=== PATIENT | female | born 1990 | race Hispanic/Latino ===

== ENCOUNTER 2020-07-06 21:49 | Emergency (ER) | payer MEDICAID, SELFPAY ==
[2020-07-07 15:46] LABS: SARS-CoV-2 MS2 Positive; SARS-CoV-2 N Gene Negative; SARS-CoV-2 S Gene Negative; SARS-CoV-2 by NAA Not Detected (NotDetected); SARS-CoV-2 orf1ab Negative
== END 2020-07-06 22:16 | disposition home or self-care (01) ==
LOC: BURERS 21:49
DX: B34.9 Viral infection, unspecified (principal); Z20.828 Contact with and (suspected) exposure to other viral communicable diseases; E11.9 Type 2 diabetes mellitus without complications; Z79.4 Long term (current) use of insulin
CPT/HCPCS: 87635; 87804; 99283; U0003

== ENCOUNTER 2022-08-22 20:29 | Observation (INO) | payer SELFPAY ==
[2022-08-22] MEDS ORDERED: Ketorolac Tromethamine 30 MG/ML VIAL ONE (20:49)
[2022-08-22] MEDS ORDERED: Ondansetron PF 4 MG/2 ML Vial ONE (20:49)
[2022-08-22] MEDS ORDERED: Acetaminophen 325 MG TAB ONE (21:35)
[2022-08-22 21:43] LABS: Bilirubin Negative (Negative); Blood, Urine Negative (Negative); Clarity Clear (Clear); Glucose, Urine (Dipstick) 500 mg/dL (Negative); Ketone, Urine > or equal to 80 mg/dL (Negative); Leukocyte Trace (Negative); Nitrite Positive (Negative); Protein, Urine (Dipstick) Trace mg/dL (Neg-Trace); Urobilinogen 0.2 mg/dL (Less than 2)
[2022-08-22 21:44] LABS: #Lymphocytes 0.5 thou/uL (1.20-3.40); #Monocytes 0.2 thou/uL (0.11-0.59); #Neutrophils 8.9 thou/uL (1.40-6.50); %Basophils 0.5 % (0.0-1.0); %Eosinophils 0.1 % (0.0-10.0); %Monocytes 2.1 % (0.0-10.0); %Neutrophils 92.3 % (42.0-75.0); Mean Corpuscular HGB CONC 32.9 g/dL (32.0-36.0); Mean Corpuscular Hemoglobin 28.7 pg (27.0-31.0); Mean Corpuscular Volume 87.2 fl (78.0-98.0); Mean Platelet Volume 7.9 fL (7.4-10.4); Platelet Count 270 10x3/uL (130-400); RBC Distribution Width 10.6 % (11.5-14.5); Red Blood Cell (RBC) Count 4.88 mill/uL (4.20-5.40); White Blood Cell (WBC) Count 9.6 10x3/uL (4.8-10.8)
[2022-08-22 21:48] LABS: ALT (SGPT) 11 U/L (8-55); AST (SGOT) 11 U/L (5-34); Albumin 4.1 g/dL (3.5-5.0); Alkaline Phosphatase 108 U/L (40-110); Anion Gap 19 mmol/L (10-20); BUN (Urea Nitrogen) 8 mg/dL (7.0-18.7); Bilirubin, Total 0.7 mg/dL (0.2-1.2); Calc. Creatinine Clearance 0 mL/min (70-130); Calcium 9.5 mg/dL (7.8-10.44); Carbon Dioxide 24 mmol/L (22-29); Chloride 94 mmol/L (98-107); Estimated GFR 121; Globulin 3.6 g/dL (2.4-3.5); Glucose 333 mg/dL (70-105); Protein, Total 7.7 g/dL (6.0-8.3); Sodium 133 mmol/L (136-145)
[2022-08-22 21:56] LABS: Pregnancy Test - Urine (BHCG) Negative (Negative); Pregu Control Background? CLEAR/WHITE (CLR/WHITE); Pregu Control Bar Appear? YES (CONTROL BAR)
[2022-08-22 22:01] LABS: Bacteria/HPF 3+ HPF (None Seen); Squamous Epithelial 0-3 HPF (0-3)
[2022-08-22] MEDS ORDERED: Ciprofloxacin Lactate/D5W 400 mg/200 ml Premix ONE (22:16)
[2022-08-22 23:03] LABS: SARS-CoV-2 NAA Rapid Test Not Detected (NotDetected)
[2022-08-22] MEDS: Sodium Chloride 0.9% 1,000 ML IV SCH (23:15)
[2022-08-22] MEDS ORDERED: Ondansetron PF 4 MG/2 ML Vial IVP PRN (23:45)
[2022-08-22] MEDS ORDERED: Ondansetron ODT 4 MG TAB SL PRN (23:45)
[2022-08-22] MEDS ORDERED: Acetaminophen 325 MG TAB PO PRN (23:45)
[2022-08-23 00:16] VITALS: BMI 27.3
[2022-08-23] MEDS: HYDROcodone/Acetaminophen 5/325 mg Tablet PO PRN ×5 (00:25→19:33)
[2022-08-23] MEDS ORDERED: Dextrose 50% Abboject 50 ML SYRINGE IVP PRN (00:30)
[2022-08-23] MEDS ORDERED: Dextrose 5% in Water 1,000 ML IV PRN (00:30)
[2022-08-23] MEDS: HumaLOG 300 UNITS/3 ML VIAL SC PRN ×2 (00:31→08:24)
[2022-08-23] MEDS: Sodium Chloride 0.9% 1,000 ML IV SCH ×2 (04:29→14:34)
[2022-08-23 08:54] LABS: Amphetamine Not Detected (NotDetected); Barbiturates Screen Not Detected (NotDetected); Benzodiazepine Screen Not Detected (NotDetected); Cocaine Metabolite Screen Detected (NotDetected); Medtox Control Line Valid? VALID (VALID); Methadone Not Detected (NotDetected); Methamphetamine Not Detected (NotDetected); Opiate Screen Not Detected (NotDetected); Oxycodone Screen Not Detected (NotDetected); Phencyclidine (PCP) Not Detected (NotDetected); THC/Cannabinoid Screen Not Detected (NotDetected); Tricyclic Screen Not Detected (NotDetected)
[2022-08-23] MEDS: HumaLOG 300 UNITS/3 ML VIAL SC SCH ×2 (12:36→17:32)
[2022-08-23 13:27] LABS: Hemoglobin A1c 10.7 % (4.0-6.0)
[2022-08-23 17:16] LABS: Bilirubin Negative (Negative); Blood, Urine Negative (Negative); Clarity Clear (Clear); Glucose, Urine (Dipstick) 500 mg/dL (Negative); Ketone, Urine > or equal to 80 mg/dL (Negative); Leukocyte Negative (Negative); Nitrite Negative (Negative); Protein, Urine (Dipstick) 30 mg/dL (Neg-Trace); Urobilinogen 0.2 mg/dL (Less than 2)
[2022-08-23] MEDS: Ondansetron ODT 4 MG TAB SL PRN (19:34)
[2022-08-23] MEDS: Lantus 1000 UNITS/10 ML VIAL SC SCH (21:00)
[2022-08-23] MEDS ORDERED: Meropenem 1 GM in Sodium Chloride 0.9% 100 ML IVPB SCH (23:00)
[2022-08-24] MEDS: Sodium Chloride 0.9% 1,000 ML IV SCH ×4 (00:30→18:37)
[2022-08-24] MEDS: HYDROcodone/Acetaminophen 5/325 mg Tablet PO PRN ×5 (02:29→22:59)
[2022-08-24] MEDS ORDERED: Meropenem 1 GM in Sodium Chloride 0.9% 100 ML IVPB SCH (06:00)
[2022-08-24] MEDS: HumaLOG 300 UNITS/3 ML VIAL SC SCH ×3 (08:21→17:24)
[2022-08-24] MEDS: cefTRIAXone\\ROCEPHIN 1 GM in Sodium Chloride 0.9% 100 ML IVPB SCH (14:07)
[2022-08-24] MEDS: Lantus 1000 UNITS/10 ML VIAL SC SCH (21:00)
[2022-08-24 22:08] LABS: Amphetamine Not Detected (NotDetected); Barbiturates Screen Not Detected (NotDetected); Benzodiazepine Screen Not Detected (NotDetected); Cocaine Metabolite Screen Detected (NotDetected); Medtox Control Line Valid? VALID (VALID); Methadone Not Detected (NotDetected); Methamphetamine Not Detected (NotDetected); Opiate Screen Detected (NotDetected); Oxycodone Screen Not Detected (NotDetected); Phencyclidine (PCP) Not Detected (NotDetected); THC/Cannabinoid Screen Not Detected (NotDetected); Tricyclic Screen Not Detected (NotDetected)
[2022-08-24] MEDS: Ondansetron ODT 4 MG TAB SL PRN (23:02)
[2022-08-25] MEDS: Sodium Chloride 0.9% 1,000 ML IV SCH ×2 (03:52→14:43)
[2022-08-25] MEDS: HYDROcodone/Acetaminophen 5/325 mg Tablet PO PRN ×4 (03:54→20:50)
[2022-08-25] MEDS: Ondansetron ODT 4 MG TAB SL PRN (04:03)
[2022-08-25 05:52] LABS: ALT (SGPT) 14 U/L (8-55); AST (SGOT) 14 U/L (5-34); Albumin 3.1 g/dL (3.5-5.0); Alkaline Phosphatase 79 U/L (40-110); Anion Gap 17 mmol/L (10-20); BUN (Urea Nitrogen) 4 mg/dL (7.0-18.7); Bilirubin, Total Less than 0.2 mg/dL (0.2-1.2); Calc. Creatinine Clearance 170 mL/min (70-130); Calcium 8.3 mg/dL (7.8-10.44); Carbon Dioxide 19 mmol/L (22-29); Chloride 104 mmol/L (98-107); Estimated GFR 128; Glucose 250 mg/dL (70-105); Potassium 3.6 mmol/L (3.5-5.1); Protein, Total 6.1 g/dL (6.0-8.3); Sodium 136 mmol/L (136-145)
[2022-08-25 05:54] LABS: Band 10 % (5-11); Lymphocytes 13 % (21-51); MDiff Complete? YES; Mean Corpuscular HGB CONC 34.6 g/dL (32.0-36.0); Mean Corpuscular Hemoglobin 29.6 pg (27.0-31.0); Mean Corpuscular Volume 85.5 fl (78.0-98.0); Mean Platelet Volume 8.8 fL (7.4-10.4); Monocytes 10 % (0-10); Neutrophil 67 % (42-75); Platelet Count 211 10x3/uL (130-400); Platelet Morphology Comment Appears Adequate; RBC Distribution Width 10.7 % (11.5-14.5); RBC Morphology Normal; Red Blood Cell (RBC) Count 3.72 mill/uL (4.20-5.40); White Blood Cell (WBC) Count 7.2 10x3/uL (4.8-10.8)
[2022-08-25] MEDS: HumaLOG 300 UNITS/3 ML VIAL SC SCH ×2 (09:02→13:43)
[2022-08-25] MEDS: cefTRIAXone\\ROCEPHIN 1 GM in Sodium Chloride 0.9% 100 ML IVPB SCH (14:43)
[2022-08-25] MEDS ORDERED: Bisacodyl 5 MG TAB PO PRN (15:26)
[2022-08-25] MEDS ORDERED: Senokot 8.6 MG TAB PO PRN (15:26)
[2022-08-25] MEDS: HumaLOG 300 UNITS/3 ML VIAL SC PRN ×2 (17:43→20:53)
[2022-08-25] MEDS: Lantus 1000 UNITS/10 ML VIAL SC SCH (20:51)
[2022-08-26] MEDS: Sodium Chloride 0.9% 1,000 ML IV SCH (01:30)
[2022-08-26] MEDS: HYDROcodone/Acetaminophen 5/325 mg Tablet PO PRN ×4 (02:55→21:14)
[2022-08-26] MEDS: Cephalexin 250 MG CAP PO SCH ×2 (09:25→15:10)
[2022-08-26] MEDS: HumaLOG 300 UNITS/3 ML VIAL SC PRN ×4 (09:26→21:16)
[2022-08-26] MEDS: Lantus 1000 UNITS/10 ML VIAL SC SCH (21:16)
[2022-08-27] MEDS: Cephalexin 250 MG CAP PO SCH ×2 (00:20→08:54)
[2022-08-27] MEDS: HYDROcodone/Acetaminophen 5/325 mg Tablet PO PRN (04:49)
[2022-08-27 05:38] VITALS: BP 117/78
[2022-08-27] MEDS ORDERED: HYDROcodone/Acetaminophen 5/325 mg Tablet PO PRN (07:24)
[2022-08-27] MEDS ORDERED: HumaLOG 300 UNITS/3 ML VIAL SC SCH (08:00)
[2022-08-27 11:07] VITALS: TEMP 97
[2022-08-27] MEDS ORDERED: Lantus 1000 UNITS/10 ML VIAL SC SCH (21:00)
== END 2022-08-27 09:15 | disposition home or self-care (01) ==
LOC: BURERS 20:29 → BURMED 22:20
PROVIDERS: ADMIT Family Medicine; ATTEND Family Medicine
DX: N12 Tubulo-interstitial nephritis, not specified as acute or chronic (principal); N39.0 Urinary tract infection, site not specified; B96.20 Unspecified Escherichia coli [E. coli] as the cause of diseases classified elsewhere; E11.9 Type 2 diabetes mellitus without complications; K38.1 Appendicular concretions; R07.81 Pleurodynia; Z16.23 Resistance to quinolones and fluoroquinolones; Z79.4 Long term (current) use of insulin; Z88.1 Allergy status to other antibiotic agents; Z20.822 Contact with and (suspected) exposure to COVID-19
CPT/HCPCS: 36415; 36416; 71045; 74176; 80053; 80306; 81003; 81015; 81025; 83036; 83605; 83735; 85025; 87040; 87077; 87086; 87149; 87186; 96361; 96365; 96366; 96367; 96375; 96376; G0378; J0696; J0744; J1815; J1885; J2185; J2405; J3490; J7050; Q0162; U0002

== ENCOUNTER 2024-01-17 15:28 | Emergency (ER) | payer OTHER ==
[2024-01-17] MEDS ORDERED: Ketorolac Tromethamine 60 MG/2 ML VIAL ONE (15:44)
== END 2024-01-17 16:15 | disposition home or self-care (01) ==
LOC: BURERS 15:28
DX: H60.92 Unspecified otitis externa, left ear (principal); E11.9 Type 2 diabetes mellitus without complications; Z79.4 Long term (current) use of insulin; Z79.84 Long term (current) use of oral hypoglycemic drugs
CPT/HCPCS: 96372; 99282; J1885

== ENCOUNTER 2024-02-21 15:59 | Emergency (ER) | payer OTHER ==
[~2024-02-21 15:59] MED LIST: Iopamidol 370 76% 100 ML VIAL ONE
[2024-02-21] MEDS ORDERED: Ondansetron PF 4 MG/2 ML Vial ONE ×2 (16:30→18:23)
[2024-02-21 16:50] LABS: #Basophils 0.1 thou/uL (0.0-0.2); #Lymphocytes 1.9 thou/uL (1.20-3.40); #Monocytes 0.5 thou/uL (0.11-0.59); #Neutrophils 4.2 thou/uL (1.40-6.50); %Basophils 1.5 % (0.0-1.0); %Eosinophils 0.5 % (0.0-10.0); %Lymphocytes 28.4 % (21.0-51.0); %Monocytes 7.3 % (0.0-10.0); %Neutrophils 62.3 % (42.0-75.0); Hematocrit 39.2 % (36.0-47.0); Hemoglobin 12.6 g/dL (12.0-16.0); Mean Corpuscular HGB CONC 32.1 g/dL (32.0-36.0); Mean Corpuscular Hemoglobin 24.7 pg (27.0-31.0); Mean Platelet Volume 7.7 fL (7.4-10.4); Platelet Count 335 10x3/uL (130-400); RBC Distribution Width 11.7 % (11.5-14.5); White Blood Cell (WBC) Count 6.8 10x3/uL (4.8-10.8)
[2024-02-21 16:54] LABS: ALT (SGPT) 13 U/L (8-55); AST (SGOT) 10 U/L (5-34); Albumin 4.3 g/dL (3.5-5.0); Alkaline Phosphatase 65 U/L (40-110); Anion Gap 20 mmol/L (10-20); BUN (Urea Nitrogen) 24 mg/dL (7.0-18.7); Bilirubin, Total 0.6 mg/dL (0.2-1.2); Calc. Creatinine Clearance 0 mL/min (70-130); Calcium 9.7 mg/dL (7.8-10.44); Carbon Dioxide 21 mmol/L (22-29); Chloride 97 mmol/L (98-107); Estimated GFR 113; Globulin 3.2 g/dL (2.4-3.5); Glucose 264 mg/dL (70-105); Lipase 12 U/L (8-78); Potassium 3.6 mmol/L (3.5-5.1); Protein, Total 7.5 g/dL (6.0-8.3); Sodium 134 mmol/L (136-145)
[2024-02-21 17:16] LABS: Platelet Adequacy Comment Appears Adequate
[2024-02-21 17:17] LABS: MDiff Complete? YES
[2024-02-21] MEDS ORDERED: Lidocaine Viscous Sol 2% 15 ml UD Cup ONE ×2 (17:18→18:29)
[2024-02-21] MEDS ORDERED: Mag-Al Plus 1200/1200/120 MG (30 mL) UDCUP ONE ×2 (17:18→18:29)
[2024-02-21 19:53] LABS: Bilirubin Negative (Negative); Blood, Urine Negative (Negative); Clarity Clear (Clear); Glucose, Urine (Dipstick) 500 mg/dL (Negative); Ketone, Urine > or equal to 80 mg/dL (Negative); Leukocyte Negative (Negative); Nitrite Negative (Negative); Protein, Urine (Dipstick) Negative (Neg-Trace); Urobilinogen 0.2 mg/dL (Less than 2); pH, Urine 6.5 (5.0-9.0)
[2024-02-21 20:02] LABS: CAUTI Indications for Culture Dysuria,urgency,freq; RBC/HPF 0-3 HPF (0-3); WBC/HPF None Seen HPF (0-3)
[2024-02-21 20:03] LABS: Bacteria/HPF None Seen HPF (None Seen)
[2024-02-21 20:04] LABS: Urine Culture Reflex No No
[2024-02-21] MEDS ORDERED: Promethazine HCl 25 MG/ML VIAL ONE (20:19)
[2024-02-21 21:35] LABS: Amphetamine Not Detected (NotDetected); Barbiturates Screen Not Detected (NotDetected); Benzodiazepine Screen Not Detected (NotDetected); Cocaine Metabolite Screen Detected (NotDetected); Methadone Not Detected (NotDetected); Methamphetamine Not Detected (NotDetected); Opiate Screen Not Detected (NotDetected); Oxycodone Screen Not Detected (NotDetected); Phencyclidine (PCP) Not Detected (NotDetected); THC/Cannabinoid Screen Not Detected (NotDetected); Tricyclic Screen Not Detected (NotDetected)
== END 2024-02-21 23:08 | disposition home or self-care (01) ==
LOC: BURERS 15:59
DX: E86.0 Dehydration (principal); R11.2 Nausea with vomiting, unspecified; E11.9 Type 2 diabetes mellitus without complications; Z79.84 Long term (current) use of oral hypoglycemic drugs; Z79.4 Long term (current) use of insulin
CPT/HCPCS: 74177; 80053; 80306; 81001; 83605; 83690; 85025; 93005; 96361; 96374; 96375; 96376; J2405; J2550; Q9967

== ENCOUNTER 2025-07-07 16:33 | Emergency (ER) | payer SELFPAY ==
[2025-07-07 17:06] LABS: #Basophils 0.1 thou/uL (0.0-0.2); #Eosinophils 0.0 thou/uL (0.0-0.7); #Lymphocytes 1.2 thou/uL (1.20-3.40); #Monocytes 0.8 thou/uL (0.11-0.59); #Neutrophils 6.6 thou/uL (1.40-6.50); %Basophils 0.8 % (0.0-1.0); %Eosinophils 0.5 % (0.0-10.0); %Lymphocytes 14.2 % (21.0-51.0); %Monocytes 8.8 % (0.0-10.0); %Neutrophils 75.6 % (42.0-75.0); Hematocrit 42.1 % (36.0-47.0); Hemoglobin 13.8 g/dL (12.0-16.0); Mean Corpuscular Hemoglobin 26.4 pg (27.0-31.0); Mean Corpuscular Volume 80.4 fl (78.0-98.0); Platelet Count 363 10x3/uL (130-400); Red Blood Cell (RBC) Count 5.23 mill/uL (4.20-5.40); White Blood Cell (WBC) Count 8.8 10x3/uL (4.8-10.8)
[2025-07-07 17:19] LABS: ALT (SGPT) 7 U/L (Less than 34); AST (SGOT) 8 U/L (11-34); Albumin 4.2 g/dL (3.1-4.5); Alkaline Phosphatase 102 U/L (40-110); Anion Gap 24 mmol/L (10-20); BUN (Urea Nitrogen) 7 mg/dL (7.0-18.7); Bilirubin, Total 0.4 mg/dL (0.3-1.2); Calc. Creatinine Clearance 0 mL/min (70-130); Calcium 10.6 mg/dL (7.8-10.44); Chloride 108 mmol/L (98-107); Globulin 3.8 g/dL (2.4-3.5); Glucose 259 mg/dL (70-105); Potassium 3.6 mmol/L (3.5-5.1); Sodium 136 mmol/L (136-145)
[2025-07-07 17:21] LABS: Bicarbonate (HCO3v) 9.0 mmol/L (22.0-28.0); CO2 Tension (PvCO2) 26.8 mmHg (42.0-51.0); Calcium, Ionized 1.43 mmol/L (1.15-1.33); Chloride 114 mmol/L (98-107); Hemoglobin - Calc 14.2 g/dL (12.0-16.0); Potassium 3.4 mmol/L (3.5-5.1); Sodium 132 mmol/L (138-145); T. Carbon Dioxide 9.8 mmol/L (22.0-28.0); vO2 Saturation-calc 89.8 % (60.0-85.0)
[2025-07-07 17:32] LABS: Carbon Dioxide 8 mmol/L (22-29)
[2025-07-07] MEDS ORDERED: Lidocaine 1%/Epinephrine 1:100K 10 ML VIAL ONE (17:34)
[2025-07-07] MEDS ORDERED: Cefepime 2 GM VIAL ONE (17:39)
[2025-07-07] MEDS ORDERED: INSULIN REGULAR IN 0.9 % NACL 100 ML ONE (17:40)
[2025-07-07] MEDS ORDERED: NS 0.9% w/ 20 MEQ KCL 1,000 ML ONE (17:46)
[2025-07-07] MEDS ORDERED: Ketorolac Tromethamine 30 MG (1 mL) VIAL ONE (18:21)
== END 2025-07-07 20:47 | disposition short-term general hospital (02) ==
LOC: BURERS 16:33
DX: E11.10 Type 2 diabetes mellitus with ketoacidosis without coma (principal); L08.9 Local infection of the skin and subcutaneous tissue, unspecified; F17.290 Nicotine dependence, other tobacco product, uncomplicated; Z55.6 Problems related to health literacy; Z79.84 Long term (current) use of oral hypoglycemic drugs; Z79.4 Long term (current) use of insulin
CPT/HCPCS: 36415; 36416; 71045; 80053; 82010; 82330; 82435; 82803; 83605; 84132; 84295; 85014; 85025; 87040; 87428; 93005; 96365; 96375; J0692; J1815; J1885; J3373; J3480